=== PATIENT | male | born 1960 | race Caucasian/White ===

== ENCOUNTER 2017-10-26 08:51 | Emergency (ER) | payer OTHER ==
[2017-10-26 09:54] LABS: BASO % 0.5 % (0.0-1.0); EOS % 0.3 % (0.0-3.0); HEMATOCRIT 40.2 % (42.0-52.0); HEMOGLOBIN 14.2 g/dl (13.5-17.5); IMMATURE GRANULOCYTE % 0.8 % (0-3.0); LYMPH # 0.5 10^3/uL (1.5-4.5); LYMPH % 6.4 % (24.0-44.0); MEAN CORPUSCULAR HEMOGLOBIN 33.6 pg (27.0-33.0); MEAN CORPUSCULAR HGB CONC 35.3 g/dl (32.0-36.5); MONO # 0.7 10^3/uL (0.0-0.8); MONO % 8.3 % (0.0-5.0); NEUTROPHILS # 6.5 10^3/uL (1.8-7.7); NEUTROPHILS % 83.7 % (36.0-66.0); PLATELET COUNT, AUTOMATED 244 10^3/uL (150-450); RED BLOOD COUNT 4.23 10^6/uL (4.30-6.10); RED CELL DISTRIBUTION WIDTH 12.2 % (11.5-14.5); WHITE BLOOD COUNT 7.8 10^3/uL (4.0-10.0)
[2017-10-26] MEDS: CEPHALEXIN 500 MG CAP PO (09:59)
[2017-10-26] MEDS: NS 1,000 ML IV (10:00)
[2017-10-26] MEDS: ADACEL/BOOSTRIX VACCINE (DIPHTH/PERTUSS/ACELL/TETANUS)0.5ML SYR (90715) IM (10:00)
[2017-10-26 10:19] LABS: ANION GAP 9 MEQ/L (8-16); BLOOD UREA NITROGEN 12 MG/DL (7-18); C REACTIVE PROTEIN QUANTITATIV 9.54 MG/DL (0.00-0.30); CALCIUM LEVEL 8.6 MG/DL (8.5-10.1); CARBON DIOXIDE LEVEL 25 MEQ/L (21-32); CHLORIDE LEVEL 103 MEQ/L (98-107); CREATININE FOR GFR 0.78 MG/DL (0.70-1.30); GLOMERULAR FILTRATION RATE > 60.0 (>56); GLUCOSE, FASTING 141 MG/DL (70-100); POTASSIUM SERUM 4.1 MEQ/L (3.5-5.1); SODIUM LEVEL 137 MEQ/L (136-145)
[2017-10-26 10:20] LABS: ERYTHROCYTE SEDIMENTATION RATE 61 mm/hr (0-20)
== END 2017-10-26 11:06 | disposition home or self-care (01) ==
LOC: M ED 08:51
DX: T23.201A Burn of second degree of right hand, unspecified site, initial encounter (principal); T23.221A Burn of second degree of single right finger (nail) except thumb, initial encounter; T22.211A Burn of second degree of right forearm, initial encounter; T31.0 Burns involving less than 10% of body surface; W40.1XXA Explosion of explosive gases, initial encounter; Y92.89 Other specified places as the place of occurrence of the external cause; B02.9 Zoster without complications; Z79.899 Other long term (current) drug therapy; Z79.82 Long term (current) use of aspirin
CPT/HCPCS: 90715

== ENCOUNTER 2020-06-25 19:30 | Emergency (ER) | payer OTHER ==
[~2020-06-25] VITALS: Ht 172.7 cm; Wt 96.9 kg
[~2020-06-25 19:30] MED LIST: ASPI81TA86 PO; TRAM50TA2 PO; VITA100T59 PO
[2020-06-25] MEDS ORDERED: VITMTA PO (20:07)
--- NOTE | 2020-06-25 21:05 | REPVR ---
PROCEDURE INFORMATION: Exam: XR Right Knee Exam date and time: 06/25/2020 8:25 PM Age: 60 years old Clinical indication: Other: Slipped; Additional info: Slipped and fell, unable to bear weight TECHNIQUE: Imaging protocol: XR Right knee. Views: 4 or more views. COMPARISON: No relevant prior studies available. FINDINGS: Bones/joints: Traction osteophyte noted along the superior aspect of the patella. Prepatellar soft tissue thickening. No definite joint effusion. The patella maintains a normal relationship to the femur. No significant degenerative changes. Soft tissues: See "Bones/joints" finding. IMPRESSION: 1. Mild prepatellar soft tissue swelling. No radiographic evidence of fracture. Electronically signed by: Cassy Vee On 06/25/2020 21:04:58 PM
[2020-06-25 22:22] VITALS: BP 141/83
== END 2020-06-25 22:23 | disposition home or self-care (01) ==
LOC: M ED 19:30
DX: S76.111A Strain of right quadriceps muscle, fascia and tendon, initial encounter (principal); W19.XXXA Unspecified fall, initial encounter; Y92.009 Unspecified place in unspecified non-institutional (private) residence as the place of occurrence of the external cause; Y93.89 Activity, other specified; Y99.8 Other external cause status; Z79.82 Long term (current) use of aspirin

== ENCOUNTER → 2020-09-03 | Outpatient (RCR) | payer OTHER ==
[~2020-09-03] MED LIST changes: +VITMTA PO
== END ==
LOC: M PT 08-18 14:01
PROVIDERS: ATTEND Orthopaedic Surgery
DX: S76.111D Strain of right quadriceps muscle, fascia and tendon, subsequent encounter (principal); X58.XXXD Exposure to other specified factors, subsequent encounter

== ENCOUNTER 2020-09-17 07:54 | Outpatient (RCR) | payer OTHER | END 2020-10-04 | LOC: M PT 07:54 | PROVIDERS: ATTEND Orthopaedic Surgery | DX: Z47.89 Encounter for other orthopedic aftercare (principal) ==